=== PATIENT | female | born 1990 | race American Indian/Alaskan Native ===

== ENCOUNTER 2020-06-04 01:37 | Emergency (ER) | payer BC ==
[2020-06-04 01:49] VITALS: BP 143/84
--- NOTE | 2020-06-04 02:38 | Emergency Department Report ---
HPI - General Chief Complaint: Allergic Reaction PUI?: No Time Seen by Provider: 06/04/20 02:15 - [facility] HPI: Patient is a 30-year-old female that presents emergency room with allergic reaction. Patient states she is having tongue swelling. Patient denies difficulty breathing. Patient denies sore throat. Patient denies difficulty swallowing. Patient states she not having any change in her breathing. Patient denies chest pain or shortness of breath. Patient denies sore throat. Patient denies fever and chills. Patient states that she does not know what caused it. Patient states she ate [employer] just prior to arrival. Patient states she does have some food allergies but is not sure what they are. Patient brought in by EMS. Patient received medication by mail and she states that her symptoms are essentially resolved. Report received from EMS. EMS gave the patient Benadryl and Solu-Medrol. ED Past Medical Hx - Past Medical History Previous Medical History?: Yes Hx Hypertension: Yes - Surgical History Past Surgical History?: No - Family History Family history: no significant - Social History Smoking Status: Never Smoker Substance Use Type: Alcohol, Marijuana - Medications Home Medications: Home Medications Medication Instructions Recorded Confirmed Last Taken Type dexAMETHasone [Taperdex] 1.5 mg PO DAILY 7 Days #1 tab.ds.pk 06/04/20 Unknown Rx ED Review of Systems ROS: Stated complaint: ALLERGIC REACTION Other details as noted in HPI Constitutional: denies: chills, fever Eyes: denies: eye pain, eye discharge, vision change ENT: denies: ear pain, throat pain Respiratory: denies: cough, shortness of breath, wheezing Cardiovascular: denies: chest pain, palpitations Endocrine: no symptoms reported Gastrointestinal: denies: abdominal pain, nausea, diarrhea Genitourinary: denies: urgency, dysuria, discharge Musculoskeletal: denies: back pain, joint swelling, arthralgia Skin: denies: rash, lesions Neurological: denies: headache, weakness, paresthesias Psychiatric: denies: anxiety, depression Hematological/Lymphatic: denies: easy bleeding, easy bruising Physical Exam - Physical Exam Vital Signs: Vital Signs 06/04/20 01:39 Temperature 98.2 F Pulse Rate 95 H Respiratory 18 Rate Blood Pressure 143/84 O2 Sat by Pulse 100 Oximetry Physical Exam: The patient appeared well nourished and normally developed. Vital signs as documented. Head exam is unremarkable. No scleral icterus or corneal arcus noted. ENT is unremarkable. Patient has no tongue swelling and no lip swelling. No abnormalities noted in the oropharynx. Neck is without jugular venous distension, thyromegaly, or carotid bruits. Carotid upstrokes are brisk bilaterally. Lungs are clear to auscultation and percussion. No stridor noted. Cardiac exam reveals the Rhythm is regular. First and second heart sounds normal. No murmurs, rubs or gallops. Abdominal exam reveals normal bowel sounds, no masses, no organomegaly and no aortic enlargement. Extremities are nonedematous and both femoral and pedal pulses are normal. ED Course Vital Signs 06/04/20 01:39 Temperature 98.2 F Pulse Rate 95 H Respiratory 18 Rate Blood Pressure 143/84 O2 Sat by Pulse 100 Oximetry - Reevaluation(s) Reevaluation #1: I discussed all results and clinical findings with patient. I discussed plan of care with patient. Patient agrees with plan of care. Patient is stable for discharge. Patient will be discharged home. Patient given discharge instructions. Patient voiced understanding of discharge instructions. 06/04/20 02:55 ED Medical Decision Making - Medical Decision Making Patient is a 30-year-old female that presents emergency room with allergic reaction. Patient was given medications in route by EMS of Benadryl and Solu- Medrol. Patient responded well to treatment. Patient's symptoms were essentially resolved upon arrival to the ER. Patient will be discharged home with a steroid pack. Patient stable for discharge. Patient not require further evaluation in the ER. Patient monitored in the ER for adequate amount of times and symptoms never returned. Patient was discharged from the ER essentially asymptomatic. Patient discharged with discharge instructions. - Differential Diagnosis Allergic reaction, tongue swelling. Critical care attestation.: If time is entered above; I have spent that time in minutes in the direct care of this critically ill patient, excluding procedure time. ED Disposition Clinical Impression: Tongue swelling Allergic reaction Qualifiers: Encounter type: initial encounter Qualified Code(s): T78.40XA - Allergy, unspecified, initial encounter Disposition: DC-01 TO HOME OR SELFCARE Is pt being admited?: No Does the pt Need Aspirin: No Condition: Stable Instructions: Food Allergy (ED), Allergies (ED) Additional Instructions: Patient to follow-up with primary care in 2 to 3 days. Patient to follow-up with rn licensed practical in 2 to 3 days. Patient to rest. Patient to increase water. Patient to avoid strenuous exercise or heavy lifting until cleared by rn licensed practical and primary care. Patient to keep a rash and allergy log for her allergies. Patient to take Tylenol or ibuprofen as needed for pain. Patient to take meds as directed. Patient to return to the ER if condition worsens, changes or new symptoms arise. Prescriptions: dexAMETHasone [Taperdex] 1.5 mg PO DAILY 7 Days #1 tab.ds.pk Referrals: SHEA GROSS MD [Referring] - 2-3 Days MARTI CERNA MD [Referring] - 2-3 Days SERVANDO MALCOLM MD [Staff Physician] - 2-3 Days Time of Disposition: 02:50
== END 2020-06-04 03:00 | disposition home or self-care (01) ==
LOC: ED 01:37
DX: T78.40XA Allergy, unspecified, initial encounter (principal); R22.0 Localized swelling, mass and lump, head; I10 Essential (primary) hypertension; F12.90 Cannabis use, unspecified, uncomplicated; Z79.899 Other long term (current) drug therapy; Y92.89 Other specified places as the place of occurrence of the external cause
CPT/HCPCS: 99283